=== PATIENT | male | born 1965 | race Caucasian/White ===

== ENCOUNTER 2016-07-14 08:39 | Day surgery (SDC) | payer BC ==
--- NOTE | ~2016-07-14 | EGD ---
EGD REPORT [facility] [address] [address] NAME: JATIN CARMONA : [birth year] STATUS : REG [facility]#: [id number] AGE: 51 ADM/REG DATE : 07/14/16 MR#: [id number] REPORT SERV DATE: 07/14/16 DICTATED BY: YADY STARR DATE: 07/14/16 REPORT STATUS : Draft TRANSCRIBED BY: [facility] DATE: 07/14/16 Pulmonology Patient Name: Jatin Carmona Procedure Date: 07/14/2016 9:56 AM Date of : 1965 Attending MD: SINCERE STARR MD Procedure Date No Time: 07/14/2016 Procedure: EBUS Indications: Mediastinal adenopathy Providers: SINCERE STARR MD Referring MD: MARY CISNEROS Medicines: Lidocaine 2% 20 mL Complications: No immediate complications Procedure: Pre-Anesthesia Assessment: - A History and Physical has been performed. Patient meds and allergies have been reviewed. The risks and benefits of the procedure and the sedation options and risks were discussed with the patient. All questions were answered and informed consent was obtained. Patient identification and proposed procedure were verified prior to the procedure by the physician and the nurse in the pre-procedure area in the procedure room. Mental Status Examination: alert and oriented. Respiratory Examination: clear to auscultation. CV Examination: normal and RRR, no murmurs, no S3 or S4. ASA Grade Assessment: II - A patient with mild systemic disease. After reviewing the risks and benefits, the patient was deemed in satisfactory condition to undergo the procedure. The anesthesia plan was to use general anesthesia. Immediately prior to administration of medications, the patient was re-assessed for adequacy to receive sedatives. The heart rate, respiratory rate, oxygen saturations, blood pressure, adequacy of pulmonary ventilation, and response to care were monitored throughout the procedure. The physical status of the patient was re-assessed after the procedure. After obtaining informed consent, the BF [id number] was introduced through the mouth, via laryngeal mask airway and advanced to the tracheobronchial tree. the Bronchoscope was introduced through the mouth, via laryngeal mask airway and advanced to the tracheobronchial tree. The procedure was accomplished without difficulty. The patient tolerated the procedure well. Findings: The laryngeal mask airway is in normal position. The vocal cords move EGD REPORT [facility] [address] [facility] [place]. [address] NAME: JATIN CARMONA : [birth year] STATUS : REG [facility]#: [id number] AGE: 51 ADM/REG DATE : 07/14/16 MR#: [id number] REPORT SERV DATE: 07/14/16 DICTATED BY: YADY STARR DATE: 07/14/16 REPORT STATUS : Draft TRANSCRIBED BY: [facility] DATE: 07/14/16 normally with breathing. The subglottic space is normal. The trachea is of normal caliber. The ozzy is sharp. The tracheobronchial tree was examined to at least the first subsegmental level. Bronchial mucosa and anatomy are normal; there are no endobronchial lesions, and no secretions. EBUS TBNA of lymph node level 11L x 4 passes for cytology EBUS TBNA of lymph node level 7 x 8 passes for cytology, flow cytometry, and cultures EBUS TBNA of lymph node level 11R x 6 passes for cytology and flow cytometry Impression: Rapid On-Site Evaluation (MEHRDAD): Preliminary cytology is "suspicious for sarcoidosis" (final results are pending). Recommendation: - Await test results. - Chest X-ray post-procedure. - Follow up with referring physician as previously scheduled. Attending Participation: I personally performed the entire procedure. SINCERE STARR MD 07/14/2016 10:41 AM This report has been signed electronically. Number of Addenda: 0 Note Initiated On: 07/14/2016 9:56 AM [address] [address]
[~2016-07-14 08:39] MED LIST: ALEVE220 MG PO
== END 2016-07-14 15:30 | disposition home or self-care (01) ==
LOC: DMU 08:39
PROVIDERS: Internal Medicine
PROC: 07974ZX Drainage of Thorax Lymphatic, Percutaneous Endoscopic Approach, Diagnostic (ICD-10-PCS; principal; 2016-07-14 10:24)
DX: R59.0 Localized enlarged lymph nodes (principal); I10 Essential (primary) hypertension
CPT/HCPCS: 71010; 80048; 85025; 85610; 85730; 87015; 87070; 87102; 87116; 87205; 88172; 88173; 88305; 88312; 93005; A9270-GY; C1725; J2250; J2405; J2710; J3010